=== PATIENT | female | born 1960 | race Caucasian/White ===

== ENCOUNTER 2018-11-11 18:03 | Emergency (ER) | payer OTHER ==
[2018-11-11] MEDS: IBUPROFEN 600 MG TAB PO (21:48)
== END 2018-11-11 23:04 | disposition home or self-care (01) ==
LOC: E/R 18:03
DX: S02.2XXA Fracture of nasal bones, initial encounter for closed fracture (principal); S42.402A Unspecified fracture of lower end of left humerus, initial encounter for closed fracture; S60.221A Contusion of right hand, initial encounter; R04.0 Epistaxis; E03.9 Hypothyroidism, unspecified; W01.198A Fall on same level from slipping, tripping and stumbling with subsequent striking against other object, initial encounter; Y92.9 Unspecified place or not applicable
CPT/HCPCS: 29125; 73080-LT; 73130-RT; 99284-25